=== PATIENT | female | born 1960 | race Caucasian/White ===

== ENCOUNTER 2016-11-19 18:31 | Emergency (ER) | payer BC ==
[2016-11-19] MEDS ORDERED: AMOX/CLAV 875 MG/125 MG TABLET PO STA (20:14)
[2016-11-19] MEDS ORDERED: AMOX/CLAV 875 MG/125 MG TABLET PO ONE (20:27)
== END 2016-11-19 20:30 | disposition home or self-care (01) ==
DX: S61.532A Puncture wound without foreign body of left wrist, initial encounter (principal); W55.01XA Bitten by cat, initial encounter; I10 Essential (primary) hypertension; Z85.3 Personal history of malignant neoplasm of breast; Z85.41 Personal history of malignant neoplasm of cervix uteri
CPT/HCPCS: 99283; A9270